=== PATIENT | female | born 1995 | race Caucasian/White ===

== ENCOUNTER 2021-10-02 16:42 | Emergency (ER) ==
[~2021-10-02] VITALS: Ht 162.6 cm; Wt 71.7 kg
[2021-10-02 16:42] VITALS: BP 124/72
[2021-10-02] MEDS ORDERED: ALBU8.5H INH (17:00)
== END 2021-10-02 19:49 | disposition left against medical advice (07) ==
LOC: M ED 16:42
DX: Z53.21 Procedure and treatment not carried out due to patient leaving prior to being seen by health care provider (principal)

== ENCOUNTER 2022-01-04 18:19 | Emergency (ER) | payer SELFPAY ==
[~2022-01-04 18:19] MED LIST: ALBU8.5H INH
[2022-01-04 18:39] VITALS: BP 137/70
== END 2022-01-04 21:54 | disposition left against medical advice (07) ==
LOC: M ED 18:19
DX: Z53.21 Procedure and treatment not carried out due to patient leaving prior to being seen by health care provider (principal)

== ENCOUNTER 2023-06-13 01:30 | Emergency (ER) | payer OTHER, SELFPAY ==
[~2023-06-13] VITALS: Ht 167.6 cm; Wt 77.3 kg
[2023-06-13 02:33] LABS: RSV AMPLIFICATION NEGATIVE (NEGATIVE)
[2023-06-13] MEDS ORDERED: ACETAMINOPHEN 325 MG TAB PO ONE (07:00)
[2023-06-13] MEDS ORDERED: IPRATROPIUM 0.5MG/ALBUTEROL 2.5MG INH SOL UD 3ML (DUONEB) NEB ONE (07:00)
[2023-06-13] MEDS ORDERED: NS 1,000 ML IV ONE (07:00)
[2023-06-13] MEDS ORDERED: methylPREDNISolone 125MG 2ML VIAL IV ONE (07:00)
[2023-06-13 07:53] LABS: BASO % 0.5 % (0.0-1.0); EOS # 0.3 10^3/uL (0.0-0.5); EOS % 4.8 % (0.0-3.0); HEMATOCRIT 36.3 % (36.0-47.0); HEMOGLOBIN 12.5 g/dl (12.0-15.5); LYMPH # 2.1 10^3/uL (1.5-5.0); LYMPH % 32.2 % (24.0-44.0); MEAN CORPUSCULAR HGB CONC 34.4 g/dl (32.0-36.5); MEAN CORPUSCULAR VOLUME 92.8 fl (80.0-96.0); MONO # 0.6 10^3/uL (0.0-0.8); MONO % 8.9 % (2.0-8.0); NEUTROPHILS # 3.5 10^3/uL (1.5-8.5); NEUTROPHILS % 53.4 % (36.0-66.0); PLATELET COUNT, AUTOMATED 190 10^3/uL (150-450); RED BLOOD COUNT 3.91 10^6/uL (4.00-5.40); WHITE BLOOD COUNT 6.6 10^3/uL (4.0-10.0)
[2023-06-13 08:21] LABS: ALBUMIN 3.6 G/DL (3.2-5.2); ALKALINE PHOSPHATASE 70 U/L (46-116); ALT/SGPT 12 U/L (7.0-40); AST/SGOT 11 U/L (<34); BILIRUBIN,DIRECT 0.1 MG/DL (<0.4); BILIRUBIN,TOTAL 0.5 MG/DL (0.3-1.2); BLOOD UREA NITROGEN 9 MG/DL (9-23); CALCIUM LEVEL 8.7 MG/DL (8.5-10.1); CARBON DIOXIDE LEVEL 26 MMOL/L (20-31); CHLORIDE LEVEL 108 MMOL/L (98-107); CREATININE FOR GFR 0.67 MG/DL (0.55-1.30); GLOMERULAR FILTRATION RATE > 60.0 (>60); GLUCOSE, FASTING 98 MG/DL (60-100); POTASSIUM SERUM 3.6 MMOL/L (3.5-5.1); SODIUM LEVEL 141 MMOL/L (136-145); TOTAL PROTEIN 6.8 G/DL (5.7-8.2)
[2023-06-13] MEDS ORDERED: ONDA4TAB6 PO (09:15)
[2023-06-13] MEDS ORDERED: VENTAER INH (09:15)
[2023-06-13] MEDS ORDERED: PRED20TA PO (09:15)
[2023-06-13 09:30] VITALS: BP 107/58; TEMP 97.2; O2SAT 99
== END 2023-06-13 09:43 | disposition home or self-care (01) ==
LOC: EDBD 01:30 → M ED 01:30
DX: J45.901 Unspecified asthma with (acute) exacerbation (principal); J06.9 Acute upper respiratory infection, unspecified; F41.9 Anxiety disorder, unspecified; F90.9 Attention-deficit hyperactivity disorder, unspecified type
CPT/HCPCS: 71046; 80048; 80076; 83605; 84702; 85025; 87040; 87486; 87581; 87631; 87633; 87798; 94640; 96361; 96374; 99284; J2930

== ENCOUNTER → 2023-06-25 | Outpatient (REF) | payer OTHER ==
[~2023-06-25] MED LIST changes: +ONDA4TAB6 PO; +PRED20TA PO; +VENTAER INH
[2023-06-25 16:58] LABS: HEMATOCRIT 44.9 % (36.0-47.0); HEMOGLOBIN 15.2 g/dl (12.0-15.5); MEAN CORPUSCULAR HEMOGLOBIN 31.9 pg (27.0-33.0); MEAN CORPUSCULAR HGB CONC 33.9 g/dl (32.0-36.5); MEAN CORPUSCULAR VOLUME 94.3 fl (80.0-96.0); PLATELET COUNT, AUTOMATED 280 10^3/uL (150-450); RED BLOOD COUNT 4.76 10^6/uL (4.00-5.40); WHITE BLOOD COUNT 6.6 10^3/uL (4.0-10.0)
[2023-06-25 17:08] LABS: ERYTHROCYTE SEDIMENTATION RATE 23 mm/hr (0-20)
[2023-06-25 17:12] LABS: ALBUMIN 4.2 G/DL (3.2-5.2); ALKALINE PHOSPHATASE 70 U/L (46-116); ALT/SGPT 25 U/L (7.0-40); AST/SGOT 17 U/L (<34); BILIRUBIN,TOTAL 0.8 MG/DL (0.3-1.2); BLOOD UREA NITROGEN 14 MG/DL (9-23); CALCIUM LEVEL 9.8 MG/DL (8.5-10.1); CARBON DIOXIDE LEVEL 28 MMOL/L (20-31); CHLORIDE LEVEL 106 MMOL/L (98-107); CHOLESTEROL LEVEL 210 MG/DL (<200); CHOLESTEROL RISK RATIO 2.92 (<5); CREATININE FOR GFR 0.83 MG/DL (0.55-1.30); GLOMERULAR FILTRATION RATE > 60.0 (>60); GLUCOSE, FASTING 63 MG/DL (60-100); HDL CHOLESTEROL 71.7 MG/DL (>40); LDL CHOLESTEROL 111.9 MG/DL (<100); NON-HDL-C 138.3 MG/DL; POTASSIUM SERUM 4.5 MMOL/L (3.5-5.1); SODIUM LEVEL 139 MMOL/L (136-145); TOTAL PROTEIN 7.6 G/DL (5.7-8.2); TRIGLYCERIDES LEVEL 132 MG/DL (<150)
[2023-06-25 17:13] LABS: THYROID STIMULATING HORMONE 1.351 uIU/ML (0.55-4.78)
== END ==
LOC: M LAB REF 16:12
PROVIDERS: ATTEND Physician Assistant
DX: R51.9 Headache, unspecified (principal); Z76.89 Persons encountering health services in other specified circumstances

== ENCOUNTER 2023-11-17 09:39 | Emergency (ER) | payer OTHER ==
[~2023-11-17] VITALS: Ht 165.1 cm; Wt 77.4 kg
[~2023-11-17 09:39] MED LIST changes: +ONDA-282 PO; -ONDA4TAB6 PO
[2023-11-17 09:41] VITALS: BP 127/76; TEMP 98.1; O2SAT 99
[2023-11-17] MEDS ORDERED: AMOX875T2 PO (13:27)
[2023-11-17] MEDS ORDERED: NAPR-837 PO (13:27)
[2023-11-17] MEDS ORDERED: PERI12LIQ PO (13:28)
[2023-11-17] MEDS: KETOROLAC 30 MG/ML 1ML VIAL IM ONE (13:35)
== END 2023-11-17 13:40 | disposition home or self-care (01) ==
LOC: M ED 09:39
DX: K04.7 Periapical abscess without sinus (principal); J45.909 Unspecified asthma, uncomplicated; F90.9 Attention-deficit hyperactivity disorder, unspecified type; F17.200 Nicotine dependence, unspecified, uncomplicated; F10.10 Alcohol abuse, uncomplicated; Z91.013 Allergy to seafood; Z91.048 Other nonmedicinal substance allergy status; Z79.52 Long term (current) use of systemic steroids; Z79.2 Long term (current) use of antibiotics; Z79.899 Other long term (current) drug therapy
CPT/HCPCS: 96372; 99282; J1885